=== PATIENT | female | born 1945 | race Caucasian/White ===

== ENCOUNTER → 2019-10-15 | Outpatient (CLI) | payer BC | LOC: SJCVCIMAG 11:58 | DX: I65.23 Occlusion and stenosis of bilateral carotid arteries (principal); H53.9 Unspecified visual disturbance; I10 Essential (primary) hypertension ==

== ENCOUNTER → 2019-10-16 | Outpatient (CLI) | payer BC | LOC: SJCVCIMAG 08:07 | DX: I07.1 Rheumatic tricuspid insufficiency (principal); I27.20 Pulmonary hypertension, unspecified; I77.810 Thoracic aortic ectasia; I10 Essential (primary) hypertension; H54.62 Unqualified visual loss, left eye, normal vision right eye ==

== ENCOUNTER → 2019-12-08 | Outpatient (CLI) | payer BC, OTHER ==
[2019-12-08 12:02] VITALS: BP 141/86
--- NOTE | 2019-12-08 15:51 | LINQ ---
[facility] [place] [place] [address] LINQ PROCEDURE REPORT Name: ASHISH TRAVIS Room #: REG [facility] Tamiko#: [id number] Admission: 12/08/19 Attend Phys: Jacques Rey Discharge: Date of : 47 Report #: [id number] THIS REPORT FOR: cc: Danyell Reynoso MD, Hillary N. MD Lammoglia, Francisco J. 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 Implanted Devices: [employer]: CONFIRM Rx; Reference #: [id number]; SN: [id number]; Use before: 2021-04-15 Procedure The patient underwent informed consent. We discussed the details of the procedure including the risks, which include, but not limited to bleeding, infection, vascular damage, cardiac perforation, and pneumothorax. After informed consent was obtained the patient was brought to the cardiac catheter vision. Hold. The left chest was prepped and draped in usual sterile manner. Utilizing 1% lidocaine a wheal was raised and through this we'll subsequently anesthetize age of the proposed implantation tract was carried forth. Continuous oximetric and echocardiography monitoring occurred throughout the procedure. Utilizing an 11 blade a small incision was then made and using both sharp and blunt dissection a pocket was generated. With the product enclosed deployment tool that the device was deployed without complication subcutaneously into the left chest region. Several days tissue was then closed with 2 simple interrupted nonabsorbable sutures and the skin was closed with 3-0 Vicryl in a running subcuticular. Steri-Strips 4 x 4 OpSite within utilized. Patient tolerated procedure well over the patient Findings [address] [address] [employer] PROCEDURE REPORT Name: THADDEUSASHISH M Room #: REG [facility]#: [id number] Admission: 12/08/19 Attend Phys: Jacques Mckenzie Discharge: Date of : 47 Report #: [id number] Estimated Blood Loss: 0 Conclusion 1. Successful insertion of a [employer] confirm implantable loop recorder Recommendations 1. Routine post loop recorder insertion protocol <ELECTRONICALLY SIGNED> By: Jacques Rey MD 12/08/19 1549 [id number] Jacques Rey MD /INF
== END | disposition home or self-care (01) ==
LOC: CATH 07:54
DX: H34.9 Unspecified retinal vascular occlusion (principal)

== ENCOUNTER → 2020-01-08 | Outpatient (CLI) | payer BC, OTHER ==
--- NOTE | 2020-01-08 11:11 | NUR ---
PT HERE FOR LOOP RECORDER REMOVAL. TEMP 97.8; HR 68; R16; O2 SAT 96%. DR. CANALES REMOVES LOOP RECORDER UNDER STERILE PROCEDURE. LIDOCAINE 2% 8MLS USED. SUTURED WITH 3-0 VICRYL AND THEN DRESSED WITH DERMABOD, STERI STRIPS, GAUZE AND TRANSPARENT DRESSING. DC'D WITH THOROUGH WOUND CARE INSTRUCTIONS AND SCRIPT FOR HYDROCODONE 5/325 MG APAP GIVEN TO PT. DC'D PER WHEELCHAIR. PT VERBALIZES UNDERSTANDING OF INSTRUCTIONS
== END | disposition home or self-care (01) ==
LOC: CATH 07:08
DX: Z45.09 Encounter for adjustment and management of other cardiac device (principal); Z86.69 Personal history of other diseases of the nervous system and sense organs